=== PATIENT | male | born 1995 | race African-American/Black ===

== ENCOUNTER 2019-02-15 02:05 | Emergency (ER) | payer BC, OTHER ==
[~2019-02-15] VITALS: Wt 86.4 kg
[2019-02-15] MEDS ORDERED: DIPHTH/TET/ACEL PERTUSS (ADULT) 0.5 ML VIAL IM* ONE (03:00)
[2019-02-15] MEDS ORDERED: morphine 4 MG/ML VIAL IV STA (04:29)
[2019-02-15] MEDS ORDERED: ONDANSETRON 4 MG INJ IV STA (04:29)
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
[2019-02-15] MEDS ORDERED: HYDR-4011 PO (05:22)
[2019-02-15] MEDS ORDERED: CLIN300C10 PO (05:49)
[2019-02-15] MEDS ORDERED: CLINDAMYCIN 600 MG/D5W (PMX) 50 ML IVPB SCH (06:00)
[2019-02-15 07:04] VITALS: BP 142/87; PULSE 86; RESP 18
== END 2019-02-15 07:06 | disposition home or self-care (01) ==
LOC: E/R 02:05
DX: S02.609B Fracture of mandible, unspecified, initial encounter for open fracture (principal); Y04.8XXA Assault by other bodily force, initial encounter; Z23 Encounter for immunization
CPT/HCPCS: 70450; 70486; 72125; 90471; 90715; 96365; 96375; 99285; J2270; J2405